=== PATIENT | female | born 1965 | race Caucasian/White ===

== ENCOUNTER 2018-12-10 17:27 | Emergency (ER) | payer MEDICAID, OTHER ==
[~2018-12-10] VITALS: Ht 165.1 cm; Wt 99.8 kg
[2018-12-10 17:43] VITALS: BP 179/124
[2018-12-10] MEDS ORDERED: cloNIDine HCL 0.1 MG TAB ONE (17:46)
[2018-12-10] MEDS ORDERED: cloNIDine HCL 0.1 MG TAB PO ONE (18:00)
== END 2018-12-10 23:01 | disposition left against medical advice (07) ==
LOC: ER 17:28
DX: H57.11 Ocular pain, right eye (principal); Z53.21 Procedure and treatment not carried out due to patient leaving prior to being seen by health care provider
CPT/HCPCS: 70450